=== PATIENT | male | born 1980 | race Caucasian/White ===

== ENCOUNTER 2016-08-10 11:20 | Emergency (ER) | payer OTHER ==
[~2016-08-10] VITALS: Ht 190.5 cm; Wt 156.0 kg
[~2016-08-10 11:20] MED LIST: CLEOCIN HCL300 MG PO; NORCO 325 MG-51 TAB PO; PREDNISONE20 MG PO
[2016-08-10 11:27] VITALS: BP 143/91; PULSE 85; TEMP 98.7
== END 2016-08-10 14:40 | disposition home or self-care (01) ==
LOC: COL.ER 11:20
DX: S56.812A Strain of other muscles, fascia and tendons at forearm level, left arm, initial encounter (principal); X50.1XXA Overexertion from prolonged static or awkward postures, initial encounter

== ENCOUNTER 2017-06-21 11:26 | Outpatient (RCR) | payer OTHER | END 2017-07-11 14:13 | disposition still patient (30) | LOC: WSOH 11:26 | DX: S76.812A Strain of other specified muscles, fascia and tendons at thigh level, left thigh, initial encounter (principal); X50.0XXA Overexertion from strenuous movement or load, initial encounter; Y99.0 Civilian activity done for income or pay; Z79.891 Long term (current) use of opiate analgesic; Z88.0 Allergy status to penicillin ==

== ENCOUNTER → 2019-06-25 | Outpatient (CLI) | payer OTHER | LOC: COL.RAD 07:16 | DX: S83.242A Other tear of medial meniscus, current injury, left knee, initial encounter (principal) ==

== ENCOUNTER 2021-11-15 18:35 | Emergency (ER) | payer OTHER ==
[~2021-11-15] VITALS: Ht 185.4 cm; Wt 163.6 kg
[2021-11-15 19:46] LABS: BASO # 0.1 K/mm3 (0.0-0.2); BASO % 0.9 % (0.0-2.0); EOS # 0.2 K/mm3 (0.0-0.7); EOS % 2.2 % (0.0-4.0); GRAN # 5.4 K/mm3 (1.4-6.5); GRAN % 58.3 % (42.2-75.2); HEMATOCRIT 46.1 % (42.0-52.0); HEMOGLOBIN 16.2 g/dl (13.5-18.0); LYMPH # 2.6 K/mm3 (1.2-3.4); LYMPH % 28.4 % (20.0-51.0); MEAN CELL VOLUME 81 fl (80.0-100.0); MEAN CORPUSCULAR HEMOGLOBIN 28 pg (27-31); MEAN CORPUSCULAR HGB CONC 35 g/dl (33.0-37.0); MEAN PLATELET VOLUME 10.7 fl (7.4-10.4); MONO # 0.9 K/mm3 (0.1-0.6); MONO % 9.8 % (1.7-9.3); PLATELET COUNT 261 K/mm3 (130-400); RED BLOOD COUNT 5.71 M/mm3 (4.20-5.60); REDCELL DISTRIBUTION WIDTH-CV 12.5 % (11.5-14.5)
[2021-11-15 20:09] LABS: ALBUMIN 3.7 gm/dL (3.5-5.0); BILIRUBIN,TOTAL 0.5 mg/dL (0.2-1.2); C-REACTIVE PROTEIN 0.39 mg/dL (0.00-0.50); CALCIUM 8.8 mg/dL (8.4-10.2); CREATININE, serum 0.95 mg/dL (0.72-1.25); POTASSIUM 3.8 mmol/L (3.5-4.5); TOTAL PROTEIN 6.6 gm/dL (6.2-8.1)
[2021-11-15 22:09] LABS: MUCOUS Present (NOT PRESENT); PH 6 (5-8); SQUAMOUS EPITHELIAL None Seen /hpf (0-10); URINE APPEARANCE Clear (CLEAR/HAZY); URINE BACTERIA None Seen /hpf (NONE SEEN); URINE BILIRUBIN Negative (NEGATIVE); URINE BLOOD Negative (NEGATIVE); URINE COLOR Yellow (YELLOW); URINE GLUCOSE Negative (NEGATIVE); URINE KETONE Negative (NEGATIVE); URINE LEUKOCYTE ESTERASE Negative (NEGATIVE); URINE NITRATE Negative (NEGATIVE); URINE PROTEIN(semi-quant) Negative (NEGATIVE); URINE RBC 0-2 /hpf (0-2); URINE UROBILINOGEN Negative (NEGATIVE); URINE WBC 0-2 /hpf (0-2)
[2021-11-15 22:21] LABS: COLLECTION METHOD CLEAN CATCH
[2021-11-15 22:39] VITALS: BP 145/101; PULSE 82
== END 2021-11-15 22:39 | disposition home or self-care (01) ==
LOC: COL.ER 18:35
PROVIDERS: Emergency Medicine
DX: R10.32 Left lower quadrant pain (principal)
CPT/HCPCS: J2270; J7120; Q9967

== ENCOUNTER → 2021-11-16 | Outpatient (CLI) | payer OTHER | LOC: COL.RAD 07:45 | DX: I86.1 Scrotal varices (principal) ==

== ENCOUNTER → 2022-03-09 | Outpatient (CLI) | payer OTHER ==
--- NOTE | 2022-03-05 09:16 | NUR ---
PT WILL BRING MED LIST
[~2022-03-09] VITALS: Ht 185.4 cm; Wt 166.5 kg
[~2022-03-09] MED LIST changes: +GRALISE300 MG PO; +MOBIC15 MG PO; +TOPROL XL 50MG50 MG PO; +TYLENOL W/COD1 UDTAB PO
[2022-03-09 08:41] VITALS: BP 165/111; PULSE 77; TEMP 98.3
[2022-03-09 10:40] VITALS: BP 166/116; PULSE 79
== END ==
LOC: COL.RAD 08:11
DX: M51.36 Other intervertebral disc degeneration, lumbar region (principal); M51.06 Intervertebral disc disorders with myelopathy, lumbar region; M79.605 Pain in left leg
CPT/HCPCS: J3301